=== PATIENT | female | born 1995 | race Caucasian/White ===

== ENCOUNTER 2018-04-16 02:08 | Emergency (ER) | payer OTHER ==
[2018-04-16 02:13] VITALS: BP 135/94
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
== END 2018-04-16 02:40 ==
DX: G50.1 Atypical facial pain (principal); F10.920 Alcohol use, unspecified with intoxication, uncomplicated; V49.49XA Driver injured in collision with other motor vehicles in traffic accident, initial encounter; Y92.410 Unspecified street and highway as the place of occurrence of the external cause